=== PATIENT | female | born 1965 | race Caucasian/White ===

== ENCOUNTER 2020-01-09 19:40 | Observation (INO) | payer MEDICARE ==
[2020-01-09 20:38] LABS: #Eosinphils 0.1 thou/uL (0.0-0.7); #Lymphocytes 2.1 thou/uL (1.20-3.40); #Monocytes 0.7 thou/uL (0.11-0.59); #Neutrophils 4.3 thou/uL (1.40-6.50); %Basophils 0.5 % (0.0-1.0); %Eosinophils 1.7 % (0.0-10.0); %Monocytes 9.7 % (0.0-10.0); %Neutrophils 59.1 % (42.0-75.0); Hemoglobin 11.1 g/dL (12.0-16.0); Mean Corpuscular HGB CONC 33.6 g/dL (32.0-36.0); Mean Corpuscular Volume 80.1 fL (78.0-98.0); Mean Platelet Volume 6.6 fL (7.4-10.4); Platelet Count 345 thou/uL (130-400); RBC Distribution Width 13.6 % (11.5-14.5); Red Blood Cell (RBC) Count 4.12 mill/uL (4.20-5.40); White Blood Cell (WBC) Count 7.2 thou/uL (4.8-10.8)
[2020-01-09] MEDS ORDERED: Morphine 4 MG/ML VIAL ONE (20:42)
[2020-01-09] MEDS ORDERED: Ondansetron PF 4 MG/2 ML Vial ONE (20:42)
[2020-01-09 20:59] LABS: ALT (SGPT) 20 U/L (8-55); AST (SGOT) 21 U/L (5-34); Albumin 3.8 g/dL (3.5-5.0); Alkaline Phosphatase 141 U/L (40-110); Anion Gap 13 mmol/L (10-20); BUN (Urea Nitrogen) 11 mg/dL (9.8-20.1); Bilirubin, Total 0.3 mg/dL (0.2-1.2); Calc. Creatinine Clearance 0 mL/min (70-130); Calcium 9.2 mg/dL (7.8-10.44); Carbon Dioxide 22 mmol/L (22-29); Chloride 105 mmol/L (98-107); Estimated GFR-MDRD 52; Globulin 3.2 g/dL (2.4-3.5); Glucose 86 mg/dL (70-105); Lipase 15 U/L (8-78); Potassium 3.9 mmol/L (3.5-5.1); Sodium 136 mmol/L (136-145)
[2020-01-09] MEDS ORDERED: Calcium Carbonate 500 MG ChewTAB PO PRN (21:47)
[2020-01-09] MEDS ORDERED: Ondansetron ODT 4 MG TAB PO PRN (21:47)
[2020-01-09] MEDS ORDERED: Ondansetron PF 4 MG/2 ML Vial IVP PRN (21:47)
--- NOTE | 2020-01-09 21:56 | PDOC.FPRHP ---
- History of Present Illness History of Present Illness: 54 yo F with PMH chronic pain, RA, ileostomy, and recent ERCP with stent placement presents for abdominal pain. Recovered well from procedure and then began to have new left sided abdominal pain 1 week ago. She called her GI and was told to take protonix, did not help. Called him again this am and was told to get labs drawn at [place] to make sure her pancreas was okay. Reports nausea, vomiting x2, chills, bloating. Denies fever. Has normal ileostomy output and is belching as usual. Left sided abdominal pain is constant but will increase at times with no aggravating or alleviating factors. Also has sharp lower suprapubic pain associated with urination, denies dysuria, frequency, itching, burning. Taking exedrin pm, phenergan, and zofran at home. 12/21/2019 had papillary stenosis with proximal dilation of the PD and common hepatic and bile ducts, pancreatic sphincterotomy with pancreatic stent, biliary sphincterotomy and dilation to 8mm. By Dr. Fung at [facility]. Pain pump managed by Dr. Méndez in [place]. Says she is also prescribed tizanidine and norco 7.5. ED Course: Clindamycin x1 in [place] Morphine 4mg, zofran in ED - Allergies/Adverse Reactions Allergies Allergy/AdvReac Type Severity Reaction Status Date / Time ciprofloxacin [From Cipro] Allergy Verified 01/09/20 22:45 codeine Allergy Verified 01/09/20 22:45 latex Allergy Verified 01/09/20 22:45 Penicillins Allergy Verified 01/09/20 22:45 Sulfa (Sulfonamide Allergy Verified 01/09/20 22:45 Antibiotics) - Home Medications Medication Instructions Recorded Confirmed Type Butalbital/Acetaminophen/Caffe 1 tab PO Q6HR PRN 01/09/20 01/09/20 History [Fioricet] FLUoxetine HCl [Prozac] 60 mg PO HS 01/09/20 01/09/20 History Gabapentin [Neurontin] 400 mg PO TID 01/09/20 01/09/20 History Hydroxychloroquine Sulfate 200 mg PO TID 01/09/20 01/09/20 History [Plaquenil] Losartan [Cozaar] 25 mg PO DAILY 01/09/20 01/09/20 History OLANZapine [ZyPREXA] 20 mg PO HS 01/09/20 01/09/20 History Pantoprazole [Protonix] 40 mg PO DAILY 01/09/20 01/09/20 History Propranolol HCl [Inderal] 20 mg PO BID 01/09/20 01/09/20 History busPIRone HCl [Buspar] 10 mg PO DAILY 01/09/20 01/09/20 History tiZANidine HCl [Tizanidine HCl] 4 mg PO TID PRN 01/09/20 01/09/20 History traZODone HCl 300 mg PO HS 01/09/20 01/09/20 History - History PMHx: RA, fibromyalgia, neuropathy, chronic back pain, HTN, depression, gastroparesis PSHx: hernia x2, pain pump, appendectomy, cholecystectomy, hysterectomy, ileostomy 2007, ERCP 12/21/19 with pancreatic stent FHx: mom-breast cancer, father-prostate ca, twin sister-colon ca Social: Denies alcohol or drug use. Prior tobacco use, smoked 10 years, quit < 20 years ago. - Review of Systems General: reports: fever/chills (chills), weight/appetite/sleep changes Eyes: denies: eye pain, vision changes ENT: denies: nasal congestion, rhinorrhea Respiratory: denies: cough, shortness of breath Cardiovascular: denies: chest pain, edema Gastrointestinal: reports: nausea, vomiting, abdominal pain. denies: constipation, GI bleeding Genitourinary: denies: dysuria, discharge Skin: denies: rashes, lesions Musculoskeletal: reports: pain, swelling, arthritis/arthralgias Neurological: denies: numbness, syncope Psychological: reports: anxiety, depression - Vital signs BP: 134/76 HR: 93 RR: 20 Tmax: 99.4 Pox: 97% on RA Wt: 77 kg - Physical Exam Constitutional: NAD, awake, alert and oriented HEENT: normocephalic and atraumatic, EOMI, grossly normal vision, grossly normal hearing Neck: supple, trachea midline Chest: no-tender to palpation Heart: RRR, normal S1/S2 Lungs: CTAB, no respiratory distress Abdomen: soft, bowel sounds present, other (L side and lower abdomen TTP, no guarding, bloated surgical scars and ileostomy present with normal nonbloody output) Musculoskeletal: normal structure, normal tone Neurological: no focal deficit Skin: no rash/lesions, capillary refill <2 seconds Heme/Lymphatic: no unusual bruising or bleeding Psychiatric: intact recent and remote memory FMR H&P: Results - Labs Result Diagrams: 01/09/20 20:26 01/09/20 20: Lab results: WBC 7.2 thou/uL (4.8-10.8) 01/09/20 20: Hgb 11.1 g/dL (12.0-16.0) L 01/09/20 20: Hct 33.1 % (36.0-47.0) L 01/09/20 20: MCV 80.1 fL (78.0-98.0) 01/09/20 20: Plt Count 345 thou/uL (130-400) 01/09/20 20: Neutrophils % 59.1 % (42.0-75.0) 01/09/20 20: Sodium 136 mmol/L (136-145) 01/09/20 20: Potassium 3.9 mmol/L (3.5-5.1) 01/09/20 20: Chloride 105 mmol/L (98-107) 01/09/20 20: Carbon Dioxide 22 mmol/L (22-29) 01/09/20 20: BUN 11 mg/dL (9.8-20.1) 01/09/20 20: Creatinine 1.11 mg/dL (0.6-1.1) H 01/09/20 20: Glucose 86 mg/dL (70-105) 01/09/20 20: Lactic Acid 1.0 mmol/L (0.5-2.2) 01/09/20 20: Calcium 9.2 mg/dL (7.8-10.44) 01/09/20 20: Total Bilirubin 0.3 mg/dL (0.2-1.2) 01/09/20 20: AST 21 U/L (5-34) 01/09/20 20: ALT 20 U/L (8-55) 01/09/20 20: Alkaline Phosphatase 141 U/L (40-110) H 01/09/20 20: Serum Total Protein 7.0 g/dL (6.0-8.3) 01/09/20 20:26 Albumin 3.8 g/dL (3.5-5.0) 01/09/20 20:26 Lipase 15 U/L (8-78) 01/09/20 20:26 FMR H&P: A/P - Plan 54 yo F is admitted for observation for abdominal pain. Intractable abdominal pain - CT ab: no obstruction, no abscess or abnormal fluid collection, post surgical changes, minimal pleural-based parenchymal changes in region of right middle lobe with some minimal nodularity up to 0.5cm slightly more prominent than prior. - no signs of acute abdomen, infection, no obstruction, no obvious post op complications present - LFTs, lipase, bili all wnl, not suggestive of any new process - get UA for patient complaint of suprapubic pain associated with urination - Gas pain contributory, simethicone ordered - Pain treatment with toradol, tylenol, GI cocktail, protonix Normocytic anemia - Hgb 11.1, unknown baseline but patient does have hx of recent procedures, also hx ileostomy RA - continue home plaquenil HTN - continue home inderal, cozzar Depression/anxiety - continue home prozac, trazodone, zyprexa, buspar Neuropathy/chronic pain - conitnue home gabapentin, tizanidine - has pain pump in place, 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 Fung at [facility] IVF: LR@110 Diet: CL, ADAT Ppx: Lovenox Code: FULL PCP: Dr. Narvaez in [place] Attending: Shameka Dispo: Admit for observation for control of abdominal pain overnight. Patient will likely need outpatient follow up with GI in [place]. Expected LOS <48hrs. Addendum - Attending - Attending Attestation Date/Time: 01/10/20 0629 I personally evaluated the patient and discussed the management with Dr. Downing. I agree with the History, Examination, Assessment and Plan documented above with any addition or exceptions noted below.
[2020-01-09] MEDS ORDERED: Lidocaine 2% Viscous Solution 10 ML, Aluminum & Magnesium Hydroxide 30 ML SSW SCH (22:00)
[2020-01-09] MEDS ORDERED: Simethicone Chewable 80 MG TAB PO SCH (22:15)
[2020-01-09] MEDS ORDERED: Promethazine HCl 25 MG/ML VIAL IM PRN (22:46)
[2020-01-09] MEDS ORDERED: Ketorolac Tromethamine 30 MG/ML VIAL IVP PRN (22:48)
[2020-01-09] MEDS ORDERED: Fioricet 325/50/40 mg Tablet PO PRN (22:57)
[2020-01-09] MEDS ORDERED: tiZANidine HCl 4 MG TAB PO PRN (23:30)
[2020-01-09] MEDS ORDERED: traZODone HCl 150 MG TAB PO SCH (23:30)
[2020-01-09] MEDS ORDERED: OLANZapine 5 MG TAB PO SCH (23:30)
[2020-01-09] MEDS ORDERED: FLUoxetine HCl 20 MG CAP PO SCH (23:30)
[2020-01-09] MEDS ORDERED: Gabapentin 400 MG CAP PO SCH (23:30)
[2020-01-09] MEDS: Acetaminophen 325 MG TAB PO PRN (23:51)
[2020-01-09] MEDS: Promethazine 25 MG TAB PO PRN (23:51)
[2020-01-10] MEDS ORDERED: Ketorolac Tromethamine 30 MG/ML VIAL IM/IV PRN (01:29)
[2020-01-10] MEDS: Lactated Ringer's 1,000 ML IV SCH ×2 (01:50→10:25)
[2020-01-10 02:54] VITALS: BMI 28.3
[2020-01-10] MEDS: Acetaminophen 325 MG TAB PO PRN (03:30)
--- NOTE | 2020-01-10 06:19 | PDOC.FM ---
- Subjective Subjective: Pt states that she went to outside ED due to left side abd pain, N/V for 4 days. She has not been able to tolerate food or drink other than sips of water. Currently she says her abdominal pain is 8 or 9 out of 10, located on the left abdomen, radiates to back and down to groin. She says it feels like pressure and "something is going to fall out" when she urinates. She is having urinary hesitancy due to the pain. - Objective Vital Signs & Weight: Vital Signs (12 hours) Temp Pulse Resp BP Pulse Ox 01/10/20 05:24 97.4 F L 83 18 101/70 95 01/10/20 04:00 97.4 F L 81 18 93/62 92 L 01/09/20 23:01 98.6 F 90 18 121/73 95 Weight Weight 77.383 kg Result Diagrams: 01/09/20 20:26 01/09/20 20:26 Phys Exam - Physical Examination Constitutional: NAD dry MM Neck: no JVD, supple Respiratory: no wheezing, clear to auscultation bilateral Cardiovascular: RRR, no significant murmur Gastrointestinal: positive bowel sounds Rebound tenderness, tender in all quadrants, no rigidity Musculoskeletal: no edema Neurological: non-focal Psychiatric: normal affect Skin: no rash Dx/Plan - Plan Plan: 54 yo F is admitted for observation for abdominal pain. Abdominal pain w/ N/V - CT ab at outside hospital showed no obstruction, no abscess or abnormal fluid collection, post surgical changes, minimal pleural-based parenchymal changes in region of right middle lobe with some minimal nodularity up to 0.5cm slightly more prominent than prior. -continued left sided pain and that radiates to back, will get CT stone protocol to check for kidney stones. UA showed blood, RBC and leuk esterase -ileostomy output normal as per patient - LFTs, lipase, bili all wnl, not suggestive of any new process - Gas pain contributory, simethicone ordered - Pain treatment with toradol, tylenol, GI cocktail, protonix -will give one time dose morphine 4mg Normocytic anemia - Hgb 11.1, unknown baseline but patient does have hx of recent procedures, also hx ileostomy RA - continue home plaquenil HTN - continue home inderal, cozzar Depression/anxiety - continue home prozac, trazodone, zyprexa, buspar Neuropathy/chronic pain - conitnue home gabapentin, tizanidine - has pain pump in place, 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 Fung at [facility] IVF: LR@110 Diet: CL, ADAT Ppx: Lovenox Code: FULL PCP: Dr. Narvaez in [place] Attending: Shameka Dispo: Admit for observation for control of abdominal pain overnight. Patient will likely need outpatient follow up with GI in [place]. Expected LOS <48hrs. Addendum - Attending - Attending Attestation Date/Time: 01/10/20 3240 I personally evaluated the patient and discussed the management with Dr. Wilson. I agree with the History, Examination, Assessment and Plan documented above with any addition or exceptions noted below. Patient here with abdominal pain in the setting of multiple known chronic abdominal conditions. She has follow up with GI in [place]. Based on lab and CT evaluation, there is no serious etiology causing her pain. Will attempt non- narcotic pain control and see if she can tolerate diet. If so, she is stable for discharge and needs to continue to follow up with her GI doctor.
[2020-01-10] MEDS: Promethazine 25 MG TAB PO PRN (06:20)
[2020-01-10 06:58] LABS: Bacteria/HPF None Seen HPF (None Seen); Bilirubin Negative (Negative); Blood, Urine Trace (Negative); Clarity Clear (Clear); Glucose, Urine (Dipstick) Normal (Negative); Ketone, Urine Negative (Negative); Leukocyte 250 Leu/uL (Negative); Mucous/LPF Rare LPF (<2+); Nitrite Negative (Negative); Protein, Urine (Dipstick) 20 mg/dL (Neg-Trace); Squamous Epithelial 0-3 HPF (0-3); Urobilinogen Normal mg/dL (Less than 2)
[2020-01-10 06:59] LABS: Specific Gravity, Urine 1.057 (1.002-1.036)
[2020-01-10] MEDS ORDERED: Morphine 4 MG/ML VIAL SLOW IVP SCH (07:45)
[2020-01-10] MEDS: Dicyclomine 10 MG CAP PO SCH ×2 (08:41→12:14)
[2020-01-10] MEDS: Metoclopramide HCl 10 MG TAB PO SCH ×2 (08:41→12:12)
[2020-01-10] MEDS: Gabapentin 400 MG CAP PO SCH ×2 (08:42→14:19)
[2020-01-10] MEDS: Hydroxychloroquine Sulfate 200 MG TAB PO SCH ×2 (08:43→14:19)
--- NOTE | 2020-01-10 08:52 | CT ---
CT ABDOMEN NONCONTRAST CT PELVIS NONCONTRAST: (Urolithiasis protocol) DATE: 01/10/2020 HISTORY: 54 year old female with abdominal pain COMPARISON: 01/09/2020 TECHNIQUE: IV injection of iodinated contrast media: None Oral contrast media: None FINDINGS: Other than for urolithiasis, the lack of IV and oral contrast limits the evaluation. Because of excreted contrast in the bilateral renal collecting systems, ureters, and urinary bladder from yesterday's CT with IV contrast, this current study is very insensitive for the detection of renal, ureteral, and bladder calculi. However, Yesterday's CT showed no such calculi. There is no hydroureteronephrosis. Urinary bladder is incompletely distended, and contains dense IV contrast material. Multiple postoperative changes that were extensively described on yesterday's report, are again noted . Allowing for the fact that this current study is noncontrast, and the previous study was with contrast, and the fact that the current study has contrast material in the collecting systems and lauro dder, while the previous one did not, no interval change is detected. IMPRESSION: 1) no obstructive uropathy. 2) multiple postsurgical changes. 3. No interval change detected compared to yesterday.
[2020-01-10] MEDS ORDERED: Propranolol HCl 20 MG TAB PO SCH (09:00)
[2020-01-10] MEDS ORDERED: Losartan 25 MG TAB PO SCH (09:00)
[2020-01-10] MEDS ORDERED: busPIRone HCl 10 MG TAB PO SCH (09:00)
[2020-01-10] MEDS ORDERED: Enoxaparin Sodium 40 MG/0.4 ML SYRINGE SC SCH (09:00)
[2020-01-10] MEDS: Simethicone Chewable 80 MG TAB PO SCH ×2 (10:22→12:59)
[2020-01-10 11:45] VITALS: BP 103/71; TEMP 97.8
[2020-01-10] MEDS ORDERED: Ketorolac Tromethamine 30 MG/ML VIAL IVP SCH (12:36)
[2020-01-10] MEDS ORDERED: traZODone HCl 150 MG TAB PO SCH (21:00)
[2020-01-10] MEDS ORDERED: OLANZapine 5 MG TAB PO SCH (21:00)
[2020-01-10] MEDS ORDERED: FLUoxetine HCl 20 MG CAP PO SCH (21:00)
--- NOTE | 2020-01-10 21:58 | DIS ---
DATE OF ADMISSION: 01/09/2020 DATE OF DISCHARGE: 01/10/2020 RESIDENT: Mary Alice Wilson MD ADMITTING ATTENDING: Fredrick Myles MD DISCHARGE ATTENDING: Fredrick Myles MD CONSULTS: None. PROCEDURES: CT abdomen and pelvis for stone protocol did not show any nephrolithiasis. PRIMARY DIAGNOSIS: Intractable abdominal pain with nausea and vomiting. SECONDARY DIAGNOSES: 1. Normocytic anemia. 2. Rheumatoid arthritis. 3. Hypertension. 4. Depression. 5. Anxiety. 6. Neuropathy/chronic pain. 7. Gastroparesis. DISCHARGE MEDICATIONS: 1. BuSpar 10 mg p.o. daily. 2. Fioricet one tab p.o. q.6 hours p.r.n. 3. Prozac 60 mg p.o. at bedtime. 4. Gabapentin 400 mg p.o. t.i.d. 5. Plaquenil 200 mg p.o. t.i.d. 6. Losartan 25 mg p.o. daily. 7. Olanzapine 20 mg p.o. at bedtime. 8. Pantoprazole 40 mg p.o. daily. 9. Propanolol 20 mg p.o. b.i.d. 10. Tizanidine 4 mg p.o. t.i.d. p.r.n. 11. Trazodone 300 mg p.o. at bedtime. 12. Reglan 10 mg p.o. daily. Discontinued medications: None. HISTORY OF PRESENT ILLNESS: The patient is a 54-year-old female with past medical history of chronic pain, rheumatoid arthritis, ileostomy, and recent ERCP with stent placement, presented with abdominal pain. She had the ERCP on December 20 at [facility]. She states that she had a hepatic and pancreatic stent placement at that time. Today, she complained of intractable abdominal pain located mostly on the left side that radiates around her back. It also radiates down to her groin. She says she is having urinary hesitancy, but denies any dysuria. Also c/o nausea and decreased appetite. She says she is not able to take anything by mouth right now. She has an ileostomy from a previous abdominal surgery done 12 years ago and states that her ileostomy is putting out the same amount. She attempted to call her surgeon to ask what to do about the pain. He told her she needed to go to an ED to get her "pancreas checked out". She went to the outside hospital at [place] and they transferred her to our hospital. Upon admission, labs were drawn. All liver functions tests were found to be normal. Pancreatic lipase was normal. She had a CT of the abdomen at the outside hospital with contrast and it showed no abnormalities. At our hospital, she had a CT without contrast for stone protocol and it showed no kidney stones. After control of her pain, she was able to tolerate clear liquids and she felt she was safe to go home. We discharged her to home and told her to follow up with her outside surgeon and her PCP. DISPOSITION: Stable. DISCHARGE INSTRUCTIONS: Location: Home. Diet: As usual, no limitations. Activity: Ad chelsea. Followup: Follow up with her GI doctor or surgeon and her PCP. Job ID: [id number] MTDD
== END 2020-01-10 15:40 | disposition home or self-care (01) ==
LOC: ERS 19:40 → T4-B 21:16
PROVIDERS: ADMIT Student in an Organized Health Care Education/Training Program; ATTEND Student in an Organized Health Care Education/Training Program
DX: R10.9 Unspecified abdominal pain (principal); R11.2 Nausea with vomiting, unspecified; D64.9 Anemia, unspecified; M06.9 Rheumatoid arthritis, unspecified; I10 Essential (primary) hypertension; F41.9 Anxiety disorder, unspecified; F32.9 Major depressive disorder, single episode, unspecified; K31.84 Gastroparesis; G62.9 Polyneuropathy, unspecified; Z79.899 Other long term (current) drug therapy; Z88.0 Allergy status to penicillin; Z88.1 Allergy status to other antibiotic agents; Z88.2 Allergy status to sulfonamides; Z88.5 Allergy status to narcotic agent; Z91.040 Latex allergy status
CPT/HCPCS: 36415; 74176; 80053; 81001; 83605; 83690; 85025; 96361; 96372; 96374; 96375; 96376; G0378; J1650; J1885; J2270; J2405; Q0169

== ENCOUNTER 2020-07-15 13:33 | Outpatient (CLI) | payer MEDICARE ==
[~2020-07-15 13:33] MED LIST: Iopamidol 300 61% 50 ML VIAL FS ONE
--- NOTE | 2020-07-15 15:12 | RAD ---
Vascular access port check fluoroscopic guided HISTORY: Poor function and lack of blood draw on left subclavian Mediport. FINDINGS: After explaining the procedure and answering all questions, the left subclavian Mediport wa s carefully accessed with a [place] needle. Saline easily flushed. Small amount of Isovue contrast was carefully injected under fluoroscopic control with multiple serie s obtained in AP position as well as HAQUE, TENZIN, superior and inferior angled. The tip of the catheter is at the central portion of the left innominate vein. The distal most distal portion of the catheter is angled posteriorly, likely abutting the posterior wall of the vein. With injection of contrast, there is free flow into the superior vena cava and right atrium. Some sierra w was seen to reflux into the left innominate vein and inferior thyroid vein. The port was flushed with heparinized saline and needle removed. Patient tolerated the procedure well and was dismissed in good condition. Fluoroscopy time 0.7 minute. IMPRESSION : Left subclavian implanted port in place with good contrast flow from the catheter tip at the most andrae tral aspect of the left innominate vein. The catheter tip does appear to be angled posteriorly 90 degrees. The distal end hole abutting the posterior wall of the innominate vein may account for the i nability to aspirate blood.
== END 2020-07-15 13:34 | disposition home or self-care (01) ==
LOC: RAD 13:33
DX: Z45.89 Encounter for adjustment and management of other implanted devices (principal)
CPT/HCPCS: 36598; J1642; Q9967